=== PATIENT | male | born 1965 | race American Indian/Alaskan Native ===

== ENCOUNTER 2017-10-19 09:41 | Observation (INO) | payer OTHER ==
--- NOTE | 2017-10-19 09:48 | ED PDOC ---
Arrival/HPI - General Time Seen by Provider: 10/19/17 09:45 Historian: Patient - History of Present Illness Narrative History of Present Illness (Text): 10/19/17 09:45 52yo male with PMhx of hypertension, Diabetes, ESRD on dialysis MWF present with complaint of chest and right arm pain since yesterday. States pain started prior starting his dialysis yesterday. States his HR was elevated while getting his dialysis yesterday with the chest pain. He decided to go home thinking chest pain will resolved, but it continued this morning. He reports previous history of similar pain in the past, but it usually resolve within a day. He did not take any medication for the pain. Also reports abdominal pain. Denies nausea, vomiting, diarrhea, constipation, fever, chills, any other complaint. Past Medical History - Provider Review Nursing Documentation Reviewed: Yes Family/Social History - Physician Review Nursing Documentation Reviewed: Yes Family/Social History: Unknown Family HX Allergies/Home Meds Allergies/Adverse Reactions: Allergies No Known Allergies Allergy (Verified 10/19/17 13:36) Home Medications: Home Meds Medication Instructions Recorded Confirmed Brimonidine 0.2% [Alphagan 0.2% 1 drp OU QID 10/19/17 10/19/17 Opht] Cinacalcet [Sensipar] 30 mg PO DAILY 10/19/17 10/19/17 Levothyroxine [Synthroid] 25 mcg PO DAILY 10/19/17 10/19/17 Metoprolol Tartrate [Lopressor] 50 mg PO BID 10/19/17 10/19/17 Minoxidil [Loniten] 10 mg PO BID 10/19/17 10/19/17 Timolol 0.5% Ophth [Timoptic 0.5% 1 drop QID 10/19/17 10/19/17 Ophth Soln] Travoprost [Travatan Z] 1 drop OU QID 10/19/17 10/19/17 Review of Systems - Physician Review All systems were reviewed & negative as marked: Yes - Review of Systems Constitutional: Normal Eyes: Normal ENT: Normal Respiratory: Normal Cardiovascular: Chest Pain. absent: Palpitations, Edema, Calf Pain, RANGEL, Orthopnea Gastrointestinal: Abdominal Pain. absent: Constipation, Diarrhea, Nausea, Vomiting, Hematemesis Genitourinary Male: Normal Musculoskeletal: Normal Skin: Normal Neurological: Normal Endocrine: Normal Hemo/Lymphatic: Normal Psychiatric: Normal Physical Exam Vital Signs Reviewed: Yes Vital Signs Temp Pulse Pulse Resp BP Pulse Ox 10/19/17 09:57 81 10/19/17 09:52 98.1 F 80 21 130/73 97 Temperature: Afebrile Blood Pressure: Normal Pulse: Regular Respiratory Rate: Normal Appearance: Positive for: Well-Appearing, Non-Toxic, Comfortable Pain Distress: None Mental Status: Positive for: Alert and Oriented X 3 - Systems Exam Head: Present: Atraumatic, Normocephalic Pupils: Present: PERRL Extroacular Muscles: Present: EOMI Conjunctiva: Present: Normal Mouth: Present: Moist Mucous Membranes Neck: Present: Normal Range of Motion Respiratory/Chest: Present: Clear to Auscultation, Good Air Exchange. No: Respiratory Distress, Accessory Muscle Use Cardiovascular: Present: Regular Rate and Rhythm, Normal S1, S2. No: Murmurs Abdomen: Present: Normal Bowel Sounds. No: Tenderness, Distention, Peritoneal Signs Back: Present: Normal Inspection Upper Extremity: Present: Normal Inspection, Other (fistular noted to left upper arm). No: Cyanosis, Edema Lower Extremity: Present: Normal Inspection. No: Edema Neurological: Present: GCS=15, CN II-XII Intact, Speech Normal Skin: Present: Warm, Dry, Normal Color. No: Rashes Psychiatric: Present: Alert, Oriented x 3, Normal Insight, Normal Concentration Medical Decision Making ED Course and Treatment: 10/19/17 21:03 Pt in ED for stated history. He was not in any distress in ED. His pain was controlled in ED with medication. Pt remain mildy tachycardic. EKG A fluter with 3:1 AV conduction First CE was negative. D dimer was elevated and V /Q was ordered to r/o PE 10/19/17 21:04 V/Q was negative. Pt was admitted for chest pain Case was HÉCTOR De Leon and he accepted pt for admission - Lab Interpretations Lab Results: 10/19/17 11:25 10/19/17 11:25 Lab Results 10/19/17 11:25: Sodium 146, Potassium 3.8, Chloride 98, Carbon Dioxide 33, Anion Gap 19, BUN 25 H, Creatinine 8.4 H*, Est GFR ( Amer) 8, Est GFR ( Non-Af Amer) 7, Random Glucose 202 H, Calcium 8.6, Magnesium 2.1, Total Bilirubin 0.7, AST 27, ALT 25, Alkaline Phosphatase 117, Lactate Dehydrogenase 516, Total Creatine Kinase 251 H, CK-MB (CK-2) 1.3, CK-MB (CK-2) % Cancelled, Troponin I 0.02, Total Protein 8.4 H, Albumin 4.4, Globulin 4.0, Albumin/ Globulin Ratio 1.1 10/19/17 11:25: PT 14.3 H, INR 1.24 H, APTT 34.6, D-Dimer, Quantitative 312 H 10/19/17 11:25: WBC 5.4, RBC 4.04, Hgb 10.5 L, Hct 34.9 L, MCV 86.4, MCH 26.0, MCHC 30.1 L, RDW 17.3 H, Plt Count 206, MPV 9.2, Gran % 48.9 L, Lymph % (Auto) 38.4 H, Garza % (Auto) 9.9 H, Eos % (Auto) 2.2, Baso % (Auto) 0.6, Gran # 2.63, Lymph # (Auto) 2.1, Garza # (Auto) 0.5, Eos # (Auto) 0.1, Baso # (Auto) 0.03, Neutrophils % (Manual) 56, Lymphocytes % (Manual) 33, Monocytes % (Manual) 8 H, Eosinophils % (Manual) 3, Nucleated RBC % 3 - RAD Interpretation Radiology Orders: 10/19/17 10:41 CHEST PORTABLE [RAD] Stat - Medication Orders Current Medication Orders: Acetaminophen (Tylenol 325mg Tab) 650 mg PO Q4 PRN PRN Reason: Pain, moderate (4-7) Aspirin (Ecotrin) 81 mg PO 0800 AVINASH Cinacalcet (Sensipar) 30 mg PO DAILY AVINASH Last Admin: 10/19/17 17:49 Dose: 30 mg Cyclobenzaprine HCl (Flexeril) 5 mg PO Q8 PRN PRN Reason: Other Famotidine (Pepcid) 40 mg PO HS AVINASH Heparin Sodium (Porcine) (Heparin) 5,000 units SC Q8 AVINASH PRN Reason: Protocol Last Admin: 10/19/17 17:49 Dose: 5,000 units Subcutaneous Administrations Document 10/19/17 17:49 CD (Rec: 10/19/17 17:49 CD [id number]) Injection Site MAR Injection Site Right Arm Charges for Administration # of Subcutaneous Administrations 1 Insulin Human Regular (Humulin R Low) 0 units SC ACHS [facility] PRN Reason: Protocol Latanoprost (Xalatan Opht) 0 ml OU HS AVINASH Levothyroxine Sodium (Synthroid) 25 mcg PO DAILY [facility] Last Admin: 10/19/17 17:49 Dose: 25 mcg Metoprolol Tartrate (Lopressor) 50 mg PO BID [facility] Last Admin: 10/19/17 17:54 Dose: 50 mg MAR Pulse and Blood Pressure Document 10/19/17 17:54 CD (Rec: 10/19/17 17:54 CD [id number]) Pulse Pulse Rate (60-90) 75 Blood Pressure Blood Pressure (100/60-150/90) 149/92 Minoxidil (Minoxidil) 10 mg PO BID [facility] Non-Formulary Medication (Brimonidine 0.2% [Alphagan 0.2% Opht]) 1 drp OU Q8 [facility] Last Admin: 10/19/17 18:02 Dose: Pantoprazole Sodium (Protonix Ec Tab) 40 mg PO BID [facility] Timolol Maleate (Timoptic 0.5% Oph Soln) 1 drop OU BID [facility] Last Admin: 10/19/17 17:49 Dose: 1 drop Discontinued Medications Aspirin (Aspirin) 325 mg PO STAT STA Stop: 10/19/17 10:42 Last Admin: 10/19/17 11:35 Dose: 325 mg Morphine Sulfate (Morphine) 4 mg IVP STAT STA Stop: 10/19/17 11:36 Last Admin: 10/19/17 11:45 Dose: 4 mg MAR Pain Assessment Document 10/19/17 11:45 OCS (Rec: 10/19/17 11:45 OCS [id number]) Pain Reassessment Is this a pain reassessment? Yes Sleep Is patient sleeping during reassessment? No Presence of Pain Presence of Pain Yes Pain Scale Used Pain Scale Used Numeric Location Pain Location Body Site Abdomen Description Description Constant Intensity of Pain at present 8 Pain Behavior Irritability Rubbing Site Facial Grimacing Aggravating Factors ADL's IVP Administration Document 10/19/17 11:45 OCS (Rec: 10/19/17 11:45 OCS [id number]) Charges for Administration # of IVP Administrations 1 Pantoprazole Sodium (Protonix Ec Tab) 40 mg PO 0600 AVINASH Pneumococcal Polyvalent Vaccine (Pneumovax 23 Vaccine) 0.5 ml IM .ONCE ONE Stop: 10/19/17 16:13 Disposition/Present on Arrival - Present on Arrival Any Indicators Present on Arrival: No History of DVT/PE: No History of Uncontrolled Diabetes: No Urinary Catheter: No History of Decub. Ulcer: No History Surgical Site Infection Following: None - Disposition Have Diagnosis and Disposition been Completed?: Yes Diagnosis: Chest pain, ESRD (end stage renal disease) Disposition: HOSPITALIZED Disposition Time: 12:40 Patient Plan: Admission Patient Problems: Current Active Problems Problem Status Onset Chest pain Acute Condition: FAIR
[2017-10-19 09:52] VITALS: BMI 26.6
[2017-10-19 11:35] LABS: BASO # 0.03 K/mm3 (0.0-2.0); BASO % 0.6 % (0.0-3.0); EOS # 0.1 (0.0-0.7); EOS % 2.2 % (1.5-5.0); GRAN # 2.63 (1.4-6.5); GRAN % 48.9 % (50.0-68.0); HEMOGLOBIN 10.5 g/dL (14.0-18.0); LYMPH # 2.1 (1.2-3.4); LYMPH % 38.4 % (22.0-35.0); MEAN CELL VOLUME 86.4 fl (80.0-105.0); MEAN CORPUSCULAR HGB CONC 30.1 g/dl (31.0-37.0); MEAN PLATELET VOLUME 9.2 fl (7.0-11.0); MONO # 0.5 (0.1-0.6); MONO % 9.9 % (1.0-6.0); PLATELET COUNT 206 10^3/uL (120.0-450.0); RBC 4.04 10^6/uL (3.5-6.1); RED CELL DISTRIBUTION WIDTH 17.3 % (11.5-14.5); WHITE BLOOD COUNT 5.4 10^3/ul (4.5-11.0)
[2017-10-19] MEDS ORDERED: Morphine 4 mg/ml ISec IVP STA (11:35)
[2017-10-19 11:51] LABS: INR 1.24 (0.93-1.08); PARTIAL THROMBOPLASTIN TIME 34.6 Seconds (25.1-36.5); PROTHROMBIN TIME 14.3 SECONDS (9.4-12.5)
[2017-10-19 11:55] LABS: TROPONIN I 0.02 ng/mL
--- NOTE | 2017-10-19 12:04 | RAD ---
HISTORY: chest pain COMPARISON: No prior. FINDINGS: LUNGS: No active pulmonary disease. PLEURA: No significant pleural effusion identified, no pneumothorax apparent. CARDIOVASCULAR: Portable technique limits evaluation of the cardiac silhouette which appears somewhat prominent. No pulmonary vascular derangement grossly evident. OSSEOUS STRUCTURES: No significant abnormalities. VISUALIZED UPPER ABDOMEN: Normal. OTHER FINDINGS: Incidental multiple wall stents are identified of bilateral subclavian and axillary regions as well as right upper extremity proximally. IMPRESSION: Potential cardiomegaly without pulmonary vascular derangement, however, frontal technique made magnify the cardiac silhouette and stent. No acute infiltrate or pleural effusion identified bilaterally.
[2017-10-19 12:23] LABS: ALB/GLOB RATIO 1.1 (1.1-1.8); ALBUMIN 4.4 g/dL (3.0-4.8); CALCIUM 8.6 mg/dL (8.4-10.5); MAGNESIUM 2.1 mg/dL (1.7-2.2)
[2017-10-19 12:47] LABS: EOSINOPHIL 3 % (0.0-3.0); LYMPHOCYTE 33 % (22.0-35.0); MONOCYTE 8 % (1.0-6.0); NEUTROPHIL 56 % (50.0-70.0); NUCLEATED RED BLOOD CELL 3 %
[2017-10-19 12:53] LABS: CK-MB 1.3 ng/mL (0.0-3.6)
--- NOTE | 2017-10-19 13:18 | CP.PCM.HP ---
History of Present Illness - History of Present Illness History of Present Illness: Chief complaint: Neck pain, dyspnea, and abdominal pain HPI: Patient is a 52 year old male with a past medical history significant for hypertension, diabetes mellitus, hypothyroidism, and end stage renal disease with dialysis MWF. Patient states on Wednesday when he was visiting his mother at [facility] [place], he noticed he was experiencing neck pain which radiated to his right arm. Patient states he ignored the pain and continued with his day. Patient described the pain as dull, rating it a 6/10, with no relieving factors. The next morning he still had the pain however stated when he was having dialysis, the pain increased to a 10/10. Admits that he was advised to go to the hospital by his office cashier however decided to go home and see if the pain would eventually resolve on its own. Patient states he woke up the next morning with the same pain and decided to go to the emergency department. To note patient states he has had this pain in the past but it has now increased in frequency and duration. Before pain would wax and wane, and was relieved with aspirin. Patient also endorses dyspnea without exertion, stating that he has also experienced this in the past however noticed that this month there has been a significant increase in instances where he finds himself short of breath. Admits to sleeping with only one pillow at night, stating that positioning does not affect his breathing at night. Patient also endorses diffuse abdominal pain which has been constant for the past two weeks. Describes the abdominal pain as constant and dull, rating it a 5/10. Patient states his abdominal pain is chronic and he usually can relieve it by taking antacids however this time he has found no relief with medication. Admits to constipation stating his last bowel movement was two days prior. Patient denies nausea, vomiting, diarrhea, fevers, chills. PMD: Dr. Rell [facility] Staff Pharmacist: Dr. Miller Medications: reviewed Allergies: NKDA Family history: Diabetes Mellitus Social history: denies tobacco, alcohol, illicit drug use Surgical history: AV fistula right arm Present on Admission - Present on Admission Any Indicators Present on Admission: No Review of Systems - Constitutional Constitutional: absent: Chills, Fever, Headache, Weakness - EENT Eyes: absent: Blurred Vision, Change in Vision Ears: absent: Ear Discharge, Tinnitus Nose/Mouth/Throat: absent: Nasal Congestion, Nasal Discharge - Cardiovascular Cardiovascular: Chest Pain at Rest (atypical chest pain), Dyspnea, Pain Radiating to Arm/Neck/Jaw (pain radiating to right arm), Pedal Edema. absent: Syncope - Respiratory Respiratory: Dyspnea, Pain with Coughing. absent: Cough, Hemoptysis, Chest Congestion - Gastrointestinal Gastrointestinal: Abdominal Pain (diffuse). absent: Diarrhea, Nausea, Vomiting - Genitourinary Genitourinary: absent: Dysuria, Flank Pain - Neurological Neurological: absent: Dizziness, Headaches, Weakness - Psychiatric Psychiatric: absent: Anxiety - Endocrine Endocrine: absent: Fatigue, Flushing - Hematologic/Lymphatic Hematologic: absent: Easy Bleeding, Easy Bruising Past Patient History - Past Social History Smoking Status: Never Smoked - CARDIAC Hx Cardiac Disorders: No - PULMONARY Hx Respiratory Disorders: No - NEUROLOGICAL Hx Neurological Disorder: No - HEENT Hx HEENT Problems: No - RENAL Hx Chronic Kidney Disease: Yes Hx Dialysis: Yes (MWF) - ENDOCRINE/METABOLIC Hx Endocrine Disorders: Yes Hx Diabetes Mellitus Type 2: Yes - HEMATOLOGICAL/ONCOLOGICAL Hx Blood Disorders: No - INTEGUMENTARY Hx Dermatological Problems: No - MUSCULOSKELETAL/RHEUMATOLOGICAL Hx Musculoskeletal Disorders: No - GASTROINTESTINAL Hx Gastrointestinal Disorders: No - GENITOURINARY/GYNECOLOGICAL Hx Genitourinary Disorders: No - PSYCHIATRIC Hx Psychophysiologic Disorder: No Hx Substance Use: No - SURGICAL HISTORY Hx Surgeries: No Meds Allergies/Adverse Reactions: Allergies Allergy/AdvReac Type Severity Reaction Status Date / Time No Known Allergies Allergy Verified 10/19/17 13:36 Physical Exam - Constitutional Appears: Non-toxic, No Acute Distress - Head Exam Head Exam: ATRAUMATIC, NORMAL INSPECTION, NORMOCEPHALIC - Eye Exam Eye Exam: EOMI, Normal appearance - ENT Exam ENT Exam: Mucous Membranes Moist - Neck Exam Neck exam: Positive for: Normal Inspection - Respiratory Exam Respiratory Exam: Chest Wall Tenderness (reproducible bilateral clavicular tenderness ), Clear to Auscultation Bilateral, NORMAL BREATHING PATTERN. absent : Rhonchi, Wheezes - Cardiovascular Exam Cardiovascular Exam: Irregular Rhythm. absent: Tachycardia, Clicks, Gallop - GI/Abdominal Exam GI & Abdominal Exam: Normal Bowel Sounds, Soft - Rectal Exam Rectal Exam: NORMAL INSPECTION - Extremities Exam Extremities exam: Positive for: pedal edema (right ankle), pedal pulses present. Negative for: calf tenderness - Back Exam Back exam: NORMAL INSPECTION - Neurological Exam Neurological exam: Alert, CN II-XII Intact, Oriented x3 - Psychiatric Exam Psychiatric exam: Normal Affect, Normal Mood - Skin Skin Exam: Intact, Normal Color, Warm Results - Vital Signs Recent Vital Signs: Last Vital Signs Temp 98.1 F 10/19/17 09:52 Pulse 81 10/19/17 09:57 Resp 21 10/19/17 09:52 BP 130/73 10/19/17 09:52 Pulse Ox 97 10/19/17 09:52 - Labs Result Diagrams: 10/19/17 11:25 10/19/17 11:25 Assessment & Plan - Assessment and Plan (Free Text) Assessment: 52 year old male with a past medical history of DM, hypertension, hypothyroidism , and ESRD (MWF) dialysis. Plan: Atypical Chest pain rule out ACS -Continue to trend troponins. First set 0.02. -EKG series; continue to monitor for changes -Cardiology consulted -Continue daily Aspirin -Lipid panel ordered for morning -HgA1C ordered; results pending -TSH ordered; results p ending Abnormal EKG -Atrial flutter and RBBB -Will monitor and follow up with EKG series Neck pain due to radiculopathy vs musculoskeletal -Reproducible in nature -Sternocleidomastoid point tenderness; will continue to monitor -Continue with OMM myofascial release as needed Abdominal pain secondary to constipation vs. gastroparesis -Possibly due to constipation, will order abdominal flat plate for further evaluation before ordering colace -HgA1C pending Dyspnea rule out CHF exacerbation vs fluid overload secondary to ESRD -CXR shows signs of cardiomegaly -BNP ordered -NC 2L -Nephrology consulted -Will resume dialysis on MWF schedule Diabetes Mellitus -HgA1C ordered -ISS-low Hypertension -Will restart home BP medications -continue to monitor BP; as of now is stable Hypothyroidism -Will restart home synthroid -TSH ordered End stage renal disease -Nephrology consulted -Will resume dialysis MWF schedule -continue cinacalcet DVT/GI prophylaxis: Heparin+SCDs/Protonix
--- NOTE | 2017-10-19 15:19 | NM ---
COMPARISON: 10/19/2017 single-view chest TECHNIQUE: 30.0 mCi technetium 99-m DTPA aerosol. 3.7 mCI technetium 99-m MAA administered intravenously. FINDINGS: VENTILATION COMPONENT: Normal. PERFUSION COMPONENT: Normal. IMPRESSION: Negative ventilation perfusion scan for pulmonary embolism.
--- NOTE | 2017-10-19 15:47 | RAD ---
HISTORY: constipation, abdominal pain COMPARISON: No prior. FINDINGS: BOWEL: Normal. No obstruction. No free air. Mild constipation BONES: Normal. OTHER FINDINGS: None. IMPRESSION: Mild constipation
[2017-10-19] MEDS ORDERED: Pneumococcal 23-Valent Vaccine IM ONE (16:12)
[2017-10-19] MEDS ORDERED: Influenza Vaccine 60 mcg/0.5 mL SYR (4YR UP) IM ONE (16:12)
[2017-10-19] MEDS: Levothyroxine 25 MCG TAB PO SCH (17:49)
[2017-10-19] MEDS: BRIMONIDINE 0.2% OU SCH (18:02)
[2017-10-19 19:33] LABS: MAGNESIUM 2.1 mg/dL (1.7-2.2)
[2017-10-19 19:49] LABS: TROPONIN I 0.02 ng/mL
[2017-10-19] MEDS: Latanoprost 2.5 ml Opht Soln OU SCH (21:18)
[2017-10-20] MEDS ORDERED: Pantoprazole 40 mg EC Tab PO SCH (06:00)
[2017-10-20 06:32] LABS: BASO # 0.03 K/mm3 (0.0-2.0); BASO % 0.6 % (0.0-3.0); EOS # 0.1 (0.0-0.7); EOS % 2.4 % (1.5-5.0); GRAN # 2.42 (1.4-6.5); GRAN % 45.6 % (50.0-68.0); HEMOGLOBIN 9.9 g/dL (14.0-18.0); LYMPH # 2.3 (1.2-3.4); LYMPH % 42.9 % (22.0-35.0); MEAN CELL VOLUME 86.1 fl (80.0-105.0); MEAN CORPUSCULAR HEMOGLOBIN 25.4 pg (25.0-35.0); MEAN CORPUSCULAR HGB CONC 29.6 g/dl (31.0-37.0); MEAN PLATELET VOLUME 9.4 fl (7.0-11.0); MONO # 0.5 (0.1-0.6); MONO % 8.5 % (1.0-6.0); RBC 3.89 10^6/uL (3.5-6.1); RED CELL DISTRIBUTION WIDTH 17.4 % (11.5-14.5); WHITE BLOOD COUNT 5.3 10^3/ul (4.5-11.0)
[2017-10-20 07:10] LABS: ALB/GLOB RATIO 1.1 (1.1-1.8); ALBUMIN 4.2 g/dL (3.0-4.8); CALCIUM 8.7 mg/dL (8.4-10.5)
[2017-10-20] MEDS: Insulin Reg-LOW-Coverage SC SCH ×4 (07:30→21:50)
[2017-10-20 07:44] LABS: IRON 36 ug/dL (45-180)
[2017-10-20 07:53] LABS: % IRON SATURATION 16 % (20-55); TOTAL IRON BINDING CAPACITY 223 ug/dL (261-462)
--- NOTE | 2017-10-20 08:26 | CARD ---
APPROVED REPORT EKG Measurement Heart [id number] <Conclusion> Normal sinus rhythm Right bundle branch block Abnormal ECG
--- NOTE | 2017-10-20 08:50 | CARD ---
APPROVED REPORT EKG Measurement Heart [id number] [id number] <Conclusion> RSR Right bundle branch block Abnormal ECG
[2017-10-20] MEDS: BRIMONIDINE 0.2% OU SCH ×3 (11:01→21:50)
--- NOTE | 2017-10-20 11:30 | CARD ---
APPROVED REPORT EXAM: Two-dimensional and M-mode echocardiogram with Doppler and color Doppler. INDICATION Chest Pain 2D DIMENSIONS Left Atrium (2D)3.4 (1.6-4.0cm)IVSd1.7 (0.7-1.1cm) LVDd4.5 (3.9-5.9cm)PWd1.6 (0.7-1.1cm) LVDs2.9 (2.5-4.0cm)FS (%) 36.1 % LVEF (%)65.9 (>50%) M-Mode DIMENSIONS Aortic Root2.70 (2.2-3.7cm)Aortic Cusp Exc.1.50 (1.5-2.0cm) Aortic Valve AoV Peak Ujnyumxm629.0cm/Marley Peak GR.17mmHg Mitral Valve MV E Upoorajk845.0cm/sMV A Yqqedjdu341.0cm/sE/A ratio1.3 TDI E/Lateral E'0.0E/Medial E'0.0 Tricuspid Valve TR Peak [id number]/sRAP [id number] Peak Gr.44mmHg [id number] LEFT VENTRICLE The left ventricle is normal size. There is moderate concentric left ventricular hypertrophy. The left ventricular function is normal. The left ventricular ejection fraction is within the normal range. There is normal LV segmental wall motion. Transmitral Doppler flow pattern is Grade II-pseudonormal filling dynamics. RIGHT VENTRICLE The right ventricle is normal size. There is normal right ventricular wall thickness. The right ventricular systolic function is normal. ATRIA The left atrium size is normal. The right atrium size is normal. AORTIC VALVE The aortic valve is mildly thickened. No aortic regurgitation is present. There is no aortic valvular stenosis. MITRAL VALVE The mitral valve is mildly thickened. There is no mitral valve regurgitation noted. There is no mitral valve stenosis. TRICUSPID VALVE There is moderate tricuspid regurgitation. There is moderate pulmonary hypertension. GREAT VESSELS The aortic root is normal in size. The IVC is normal in size and collapses >50% with inspiration. PERICARDIAL EFFUSION There is no pericardial effusion. <Conclusion> The left ventricle is normal size. There is moderate concentric left ventricular hypertrophy. The left ventricular function is normal. The left ventricular ejection fraction is within the normal range. There is normal LV segmental wall motion. There is moderate tricuspid regurgitation. There is moderate pulmonary hypertension.
[2017-10-20 12:56] LABS: FOLATE 6.4 ng/mL
--- NOTE | 2017-10-20 14:27 | CP.PCM.PN ---
Addendum entered and electronically signed by Lizette Wiley DO 10/20/17 15:18 : Questionable A-flutter - Per cardio, this is not A-flutter. Pt is in sinus rhythm Anemia of chronic dz likely due to ESRD for ineffective vit D activation, and low erythopoietin - ferritin high with Fe deficiency - Hb stable at 10 - asymtpmatic Neck pain and R upper arm pain - flexiril HS and PRN during the day - pending___ neck and R shoulder x-ray to r/o unstable structures - Pending____u/s R upper arm to r/o DVT Discharge plan - Pending PT eval - likely discharge home tomorrow with prescription of outpatient occupational and physical therapy s/r/d/w Dr. Rueda Original Note: <Deepak Varela - Last Filed: 10/20/17 14:46> Subjective - Date & Time of Evaluation Date of Evaluation: 10/20/17 Time of Evaluation: 06:30 - Subjective Subjective: Patient seen and examined at bedside. Noted to have a cough. Patient states his neck pain is still present and has only improved slightly. Denies fevers, chills , headache, chest pain. Objective - Vital Signs/Intake and Output Vital Signs (last 24 hours): Temp Pulse Resp BP Pulse Ox 98.7 F 80 18 127/78 98 10/20/17 05:17 10/20/17 10:00 10/20/17 05:17 10/20/17 05:17 10/20/17 05:17 Intake and Output: 10/20/17 10/20/17 06:59 18:59 Intake Total 120 Output Total 0 Balance 120 - Medications Medications: Current Medications Acetaminophen (Tylenol 325mg Tab) 650 mg PO Q4 PRN PRN Reason: Pain, moderate (4-7) Aspirin (Ecotrin) 81 mg PO 0800 [facility] Last Admin: 10/20/17 08:02 Dose: 81 mg Cinacalcet (Sensipar) 30 mg PO DAILY [facility] Last Admin: 10/19/17 17:49 Dose: 30 mg Cyclobenzaprine HCl (Flexeril) 5 mg PO Q8 PRN PRN Reason: Other Docusate Sodium (Colace) 100 mg PO DAILY [facility]CLUDES [facility] Famotidine (Pepcid) 40 mg PO HS [facility]CLUD[facility] Last Admin: 10/19/17 21:18 Dose: 40 mg Heparin Sodium (Porcine) (Heparin) 5,000 units SC Q8 [facility] PRN Reason: Protocol Last Admin: 10/20/17 05:02 Dose: 5,000 units Insulin Human Regular (Humulin R Low) 0 units SC ACHS COUNT INCLUDES [facility] PRN Reason: Protocol Last Admin: 10/20/17 07:30 Dose: Not Given Latanoprost (Xalatan Opht) 0 ml OU HS [facility]CLUD[facility] Last Admin: 10/19/17 21:18 Dose: 2.5 ml Levothyroxine Sodium (Synthroid) 25 mcg PO DAILY [facility] Last Admin: 10/19/17 17:49 Dose: 25 mcg Metoprolol Tartrate (Lopressor) 50 mg PO BID [facility] Last Admin: 10/19/17 17:54 Dose: 50 mg Minoxidil (Minoxidil) 10 mg PO BID COUNT [facility]CLUDES [facility] Non-Formulary Medication (Brimonidine 0.2% [Alphagan 0.2% Opht]) 1 drp OU Q8 [facility]CLUDES [facility] Last Admin: 10/20/17 11:01 Dose: Not Given Pantoprazole Sodium (Protonix Ec Tab) 40 mg PO BID COUNT [facility]CLUDES [facility] Timolol Maleate (Timoptic 0.5% Ophth Soln) 1 drop OU BID [facility] Last Admin: 10/19/17 17:49 Dose: 1 drop - Labs Labs: 10/20/17 05:15 10/20/17 05:15 PT 14.3 SECONDS (9.4-12.5) H 10/19/17 11:25 INR 1.24 (0.93-1.08) H 10/19/17 11:25 APTT 34.8 Seconds (25.1-36.5) 10/20/17 05:15 - Constitutional Appears: Non-toxic, No Acute Distress - Head Exam Head Exam: ATRAUMATIC, NORMAL INSPECTION, NORMOCEPHALIC - Eye Exam Eye Exam: EOMI, Normal appearance - ENT Exam ENT Exam: Mucous Membranes Moist - Neck Exam Neck Exam: Full ROM, Normal Inspection - Respiratory Exam Respiratory Exam: Clear to Ausculation Bilateral, NORMAL BREATHING PATTERN. absent: Rhonchi, Wheezes - Cardiovascular Exam Cardiovascular Exam: REGULAR RHYTHM, +S1, +S2 - GI/Abdominal Exam GI & Abdominal Exam: Soft, Tenderness (diffuse), Normal Bowel Sounds - Extremities Exam Extremities Exam: Normal Inspection - Back Exam Back Exam: NORMAL INSPECTION - Neurological Exam Neurological Exam: Alert, Awake, Oriented x3 - Psychiatric Exam Psychiatric exam: Normal Affect, Normal Mood - Skin Skin Exam: Intact, Normal Color, Warm Assessment and Plan - Assessment and Plan (Free Text) Assessment: 52 year old male with a past medical history of DM, hypertension, hypothyroidism , and ESRD (MWF) dialysis. Plan: Atypical Chest pain rule out ACS -Troponin series negative -EKG series; continue to monitor for changes -Cardiology consulted; states patient's echocardiogram is normal. Will rule out DVT/PE with symptoms. Patient will have CTA done tomorrow which will be followed by dialysis on Wednesday. -Continue daily Aspirin -Lipid panel no abnormalities found -HgA1C 5.3 -TSH within normal limits Neck and arm pain due to radiculopathy vs musculoskeletal -Reproducible in nature -Sternocleidomastoid point tenderness; will continue to monitor -Continue with OMM myofascial release as needed -Cervical spine x-ray ordered -Right upper extremity venous doppler ordered; will follow up Abdominal pain secondary to constipation -Possibly due to constipation, ordered colace and miralax -Will continue to monitor Dyspnea rule out CHF exacerbation vs fluid overload secondary to ESRD -CXR shows signs of cardiomegaly -BNP elevated, patient needs to continue with dialysis -NC 2L -Nephrology consulted; MWF dialysis schedule resumed Diabetes Mellitus -HgA1C 5.3 -ISS-low Hypertension -continue home BP medications -continue to monitor BP; as of now is stable Hypothyroidism -continue synthroid -TSH within normal limits End stage renal disease -Nephrology consulted -Will resume dialysis MWF schedule -continue cinacalcet DVT/GI prophylaxis: Heparin+SCDs/Protonix <Robles Rueda B - Last Filed: 10/20/17 17:05> Objective - Vital Signs/Intake and Output Vital Signs (last 24 hours): Temp Pulse Resp BP Pulse Ox 98.7 F 88 18 160/90 H 98 10/20/17 05:17 10/20/17 15:15 10/20/17 05:17 10/20/17 15:15 10/20/17 05:17 Intake and Output: 10/20/17 10/20/17 06:59 18:59 Intake Total 120 120 Output Total 0 300 Balance 120 -180 - Medications Medications: Current Medications Acetaminophen (Tylenol 325mg Tab) 650 mg PO Q4 PRN PRN Reason: Pain, moderate (4-7) Aspirin (Ecotrin) 81 mg PO 0800 [facility] Last Admin: 10/20/17 08:02 Dose: 81 mg Cinacalcet (Sensipar) 30 mg PO DAILY COUNT [facility]CLUDES [facility] Last Admin: 10/20/17 15:16 Dose: 30 mg Cyclobenzaprine HCl (Flexeril) 5 mg PO HS COUNT [facility]CLUDES [facility] Cyclobenzaprine HCl (Flexeril) 5 mg PO Q12 PRN PRN Reason: Other Docusate Sodium (Colace) 100 mg PO TID COUNT INCLUDES [facility] Famotidine (Pepcid) 40 mg PO HS COUNT [facility]CLUDES [facility] Last Admin: 10/19/17 21:18 Dose: 40 mg Heparin Sodium (Porcine) (Heparin) 5,000 units SC Q8 [facility] PRN Reason: Protocol Last Admin: 10/20/17 15:23 Dose: 5,000 units Hydralazine HCl (Apresoline) 10 mg IVP Q6 PRN PRN Reason: Systolic Blood Pressure Insulin Human Regular (Humulin R Low) 0 units SC ACHS COUNT INCLUDES [facility] PRN Reason: Protocol Last Admin: 10/20/17 15:18 Dose: Not Given Latanoprost (Xalatan Opht) 0 ml OU HS COUNT [facility]CLUDES [facility] Last Admin: 10/19/17 21:18 Dose: 2.5 ml Levothyroxine Sodium (Synthroid) 25 mcg PO DAILY COUNT [facility]CLUDES [facility] Last Admin: 10/20/17 15:17 Dose: 25 mcg Metoprolol Tartrate (Lopressor) 50 mg PO BID COUNT [facility]CLUD[facility] Last Admin: 10/20/17 15:15 Dose: 50 mg Minoxidil (Minoxidil) 10 mg PO BID COUNT [facility]CLUDES [facility] Last Admin: 10/20/17 15:16 Dose: 10 mg Non-Formulary Medication (Brimonidine 0.2% [Alphagan 0.2% Opht]) 1 drp OU Q8 COUNT [facility]CLUD[facility] Last Admin: 10/20/17 15:19 Dose: Not Given Pantoprazole Sodium (Protonix Ec Tab) 40 mg PO BID COUNT [facility]CLUD[facility] Last Admin: 10/20/17 15:17 Dose: 40 mg Polyethylene Glycol (Miralax) 17 gm PO BID [facility] Timolol Maleate (Timoptic 0.5% Ophth Soln) 1 drop OU BID [facility] Last Admin: 10/20/17 10:00 Dose: Not Given - Labs Labs: 10/20/17 05:15 10/20/17 05:15 PT 14.3 SECONDS (9.4-12.5) H 10/19/17 11:25 INR 1.24 (0.93-1.08) H 10/19/17 11:25 APTT 34.8 Seconds (25.1-36.5) 10/20/17 05:15 Attending/Attestation - Attestation I have personally seen and examined this patient.: Yes I have fully participated in the care of the patient.: Yes I have reviewed all pertinent clinical information, including history, physical exam and plan: Yes Notes (Text): 52 year old male with a past medical history of DM, hypertension, hypothyroidism , and ESRD (MWF) dialysis who came for evaluation of neck pain. ACS ruled out. Echo revealed LVEF , Moderate TR and moderate pulmonary hypertension. Patient is in NSR. CT angio ordered by mink farmer. Neck pain is most likely related to musculoskeletal etiology. Cervical spine Xray pending. Neck CT pending. UE duplex pending. Abdominal pain is most likely due to constipation. Will continue miralax and colace. A1c is 5.3. Continue synthroid. Upon discharge patient will follow up with Dr Rell Oates. Dr Robles Rueda
[2017-10-20] MEDS: Pantoprazole 40 mg EC Tab PO SCH ×2 (15:17→17:53)
[2017-10-20] MEDS: Levothyroxine 25 MCG TAB PO SCH (15:17)
[2017-10-20] MEDS: POLYETHYLENE GLYCOL 3350 17 GM/Dose PACKET PO SCH (17:53)
--- NOTE | 2017-10-20 19:35 | CP.PCM.CON ---
Past Patient History - Past Social History Smoking Status: Never Smoked - CARDIAC Hx Cardiac Disorders: No - PULMONARY Hx Respiratory Disorders: No - NEUROLOGICAL Hx Neurological Disorder: No - HEENT Hx HEENT Problems: No - RENAL Hx Chronic Kidney Disease: Yes Hx Dialysis: Yes (MWF) - ENDOCRINE/METABOLIC Hx Endocrine Disorders: Yes Hx Diabetes Mellitus Type 2: Yes - HEMATOLOGICAL/ONCOLOGICAL Hx Blood Disorders: No - INTEGUMENTARY Hx Dermatological Problems: No - MUSCULOSKELETAL/RHEUMATOLOGICAL Hx Musculoskeletal Disorders: No - GASTROINTESTINAL Hx Gastrointestinal Disorders: No - GENITOURINARY/GYNECOLOGICAL Hx Genitourinary Disorders: No - PSYCHIATRIC Hx Psychophysiologic Disorder: No Hx Substance Use: No - SURGICAL HISTORY Hx Surgeries: No Meds Allergies/Adverse Reactions: Allergies Allergy/AdvReac Type Severity Reaction Status Date / Time No Known Allergies Allergy Verified 10/19/17 13:36 - Medications Medications: Current Medications Acetaminophen (Tylenol 325mg Tab) 650 mg PO Q4 PRN PRN Reason: Pain, moderate (4-7) Aspirin (Ecotrin) 81 mg PO 0800 [facility] Last Admin: 10/20/17 08:02 Dose: 81 mg Cinacalcet (Sensipar) 30 mg PO DAILY [facility] Last Admin: 10/20/17 15:16 Dose: 30 mg Cyclobenzaprine HCl (Flexeril) 5 mg PO HS [facility] Cyclobenzaprine HCl (Flexeril) 5 mg PO Q12 PRN PRN Reason: Other Docusate Sodium (Colace) 100 mg PO TID [facility] Last Admin: 10/20/17 17:49 Dose: 100 mg Famotidine (Pepcid) 40 mg PO HS [facility] Last Admin: 10/19/17 21:18 Dose: 40 mg Heparin Sodium (Porcine) (Heparin) 5,000 units SC Q8 [facility] PRN Reason: Protocol Last Admin: 10/20/17 15:23 Dose: 5,000 units Hydralazine HCl (Apresoline) 10 mg IVP Q6 PRN PRN Reason: Systolic Blood Pressure Insulin Human Regular (Humulin R Low) 0 units SC ACHS [facility] PRN Reason: Protocol Last Admin: 10/20/17 17:42 Dose: Not Given Latanoprost (Xalatan Opht) 0 ml OU HS [facility] Last Admin: 10/19/17 21:18 Dose: 2.5 ml Levothyroxine Sodium (Synthroid) 25 mcg PO DAILY [facility] Last Admin: 10/20/17 15:17 Dose: 25 mcg Metoprolol Tartrate (Lopressor) 50 mg PO BID [facility] Last Admin: 10/20/17 15:15 Dose: 50 mg Minoxidil (Minoxidil) 10 mg PO BID [facility] Last Admin: 10/20/17 15:16 Dose: 10 mg Non-Formulary Medication (Brimonidine 0.2% [Alphagan 0.2% Opht]) 1 drp OU Q8 [facility] Last Admin: 10/20/17 15:19 Dose: Not Given Pantoprazole Sodium (Protonix Ec Tab) 40 mg PO BID [facility] Last Admin: 10/20/17 17:53 Dose: 40 mg Polyethylene Glycol (Miralax) 17 gm PO BID [facility] Last Admin: 10/20/17 17:53 Dose: 17 gm Timolol Maleate (Timoptic 0.5% Oph Soln) 1 drop OU BID [facility] Last Admin: 10/20/17 17:53 Dose: 1 drop Results - Vital Signs Recent Vital Signs: Last Vital Signs Temp 98.7 F 10/20/17 05:17 Pulse 108 H 10/20/17 18:00 Resp 18 10/20/17 05:17 BP 160/90 H 10/20/17 15:15 Pulse Ox 98 10/20/17 05:17 - Labs Result Diagrams: 10/20/17 05:15 10/20/17 05:15 Labs: Laboratory Results - last 24 hr 10/19/17 10/19/17 10/19/17 19:04 19:04 19:04 WBC RBC Hgb Hct MCV MCH MCHC RDW Plt Count MPV Gran % Lymph % (Auto) Hart % (Auto) Eos % (Auto) Baso % (Auto) Gran # Lymph # (Auto) Hart # (Auto) Eos # (Auto) Baso # (Auto) APTT Sodium Potassium Chloride Carbon Dioxide Anion Gap BUN Creatinine Est GFR ( Amer) Est GFR (Non-Af Amer) POC Glucose (mg/dL) Random Glucose Hemoglobin A1c 5.3 Calcium Iron TIBC % Saturation Ferritin Total Bilirubin AST ALT Alkaline Phosphatase Troponin I 0.02 NT-Pro-B Natriuret Pep 21077 H Total Protein Albumin Globulin Albumin/Globulin Ratio Triglycerides Cholesterol LDL Cholesterol Direct HDL Cholesterol Vitamin B12 Folate TSH 3rd Generation 3.48 10/19/17 10/19/1710/20/18 21:44 23:20 05:15 WBC RBC Hgb Hct MCV MCH MCHC RDW Plt Count MPV Gran % Lymph % (Auto) Hart % (Auto) Eos % (Auto) Baso % (Auto) Gran # Lymph # (Auto) Hart # (Auto) Eos # (Auto) Baso # (Auto) APTT Sodium 146 Potassium 4.2 Chloride 98 Carbon Dioxide 35 H Anion Gap 18 BUN 34 H Creatinine 10.1 H* D Est GFR ( Amer) 7 Est GFR (Non-Af Amer) 5 POC Glucose (mg/dL) 149 H Random Glucose 118 H Hemoglobin A1c Calcium 8.7 Iron TIBC % Saturation Ferritin Total Bilirubin 0.8 AST 39 ALT 19 Alkaline Phosphatase 95 Troponin I 0.02 NT-Pro-B Natriuret Pep Total Protein 8.0 Albumin 4.2 Globulin 3.8 Albumin/Globulin Ratio 1.1 Triglycerides 64 Cholesterol 126 L LDL Cholesterol Direct 51 HDL Cholesterol 40 Vitamin B12 Folate TSH 3rd Generation 10/20/17 10/20/17 10/20/17 05:15 05:15 06:30 WBC 5.3 RBC 3.89 Hgb 9.9 L Hct 33.5 L MCV 86.1 MCH 25.4 MCHC 29.6 L RDW 17.4 H Plt Count 189 MPV 9.4 Gran % 45.6 L Lymph % (Auto) 42.9 H Hart % (Auto) 8.5 H Eos % (Auto) 2.4 Baso % (Auto) 0.6 Gran # 2.42 Lymph # (Auto) 2.3 Hart # (Auto) 0.5 Eos # (Auto) 0.1 Baso # (Auto) 0.03 APTT 34.8 Sodium Potassium Chloride Carbon Dioxide Anion Gap BUN Creatinine Est GFR ( Amer) Est GFR (Non-Af Amer) POC Glucose (mg/dL) Random Glucose Hemoglobin A1c Calcium Iron 36 L TIBC 223 L % Saturation 16 L Ferritin Total Bilirubin AST ALT Alkaline Phosphatase Troponin I NT-Pro-B Natriuret Pep Total Protein Albumin Globulin Albumin/Globulin Ratio Triglycerides Cholesterol LDL Cholesterol Direct HDL Cholesterol Vitamin B12 Folate TSH 3rd Generation 10/20/17 10/20/17 10/20/17 06:30 07:13 16:16 WBC RBC Hgb Hct MCV MCH MCHC RDW Plt Count MPV Gran % Lymph % (Auto) Hart % (Auto) Eos % (Auto) Baso % (Auto) Gran # Lymph # (Auto) Hart # (Auto) Eos # (Auto) Baso # (Auto) APTT Sodium Potassium Chloride Carbon Dioxide Anion Gap BUN Creatinine Est GFR ( Amer) Est GFR (Non-Af Amer) POC Glucose (mg/dL) 116 H 142 H Random Glucose Hemoglobin A1c Calcium Iron TIBC % Saturation Ferritin 1090.0 Total Bilirubin AST ALT Alkaline Phosphatase Troponin I NT-Pro-B Natriuret Pep Total Protein Albumin Globulin Albumin/Globulin Ratio Triglycerides Cholesterol LDL Cholesterol Direct HDL Cholesterol Vitamin B12 984 H Folate 6.4 TSH 3rd Generation
[2017-10-20] MEDS: Latanoprost 2.5 ml Opht Soln OU SCH (21:54)
--- NOTE | 2017-10-20 22:07 | CON ---
DATE: CARDIOLOGY CONSULTATION REASON FOR CONSULTATION: Chest pain. HISTORY OF PRESENT ILLNESS: The patient is a 52 years old male who has history of end-stage renal disease, on hemodialysis for the past 10 years. He has been experiencing chest discomfort while in hemodialysis, spreading from the right shoulder to the left shoulder involving the upper sternal area. Patient is unaware of any prior cardiac history and denies any associated diaphoresis or dizziness with his chest discomfort. SOCIAL HISTORY: Patient is nonsmoker, nondrinker. MEDICATIONS: Colace 100 mg once a day, aspirin 81 mg once a day, Flexeril 5 mg q. 8 hours, heparin 5000 units q. 8 hours, Lopressor 50 mg once a day, minoxidil 10 mg twice a day, Pepcid 40 mg once a day, Protonix 40 mg p.o. twice a day, Synthroid 25 mcg once a day. REVIEW OF SYSTEMS: No fever or chills, no vomiting or diarrhea. PHYSICAL EXAMINATION: GENERAL: The patient is a middle-aged male who does not appear to be in any distress. VITAL SIGNS: Blood pressure 127/78, heart rate 73, temperature 98.7, respirations 18. HEENT: Pale conjunctivae. CHEST: Clear. HEART: S1, S2 regular. ABDOMEN: Soft. EXTREMITIES: Trace leg edema. LABORATORY DATA: Today's SMA-7 prior to hemodialysis: Sodium 146, potassium 4.2, chloride 98, CO2 of 35, glucose 118, BUN 34, creatinine 10.1. Serum iron is 36 and total iron binding capacity of , both are below normal. The proBNP is 27,400. Total cholesterol is 126. The rest of lipid profile is within normal limits. TSH level is within normal limits. D-dimer is 312, which is elevated. Hemoglobin and hematocrit 9.9 and 33.5, white count and platelet count are within normal limits. EKG revealed sinus rhythm and right bundle-branch block. Echocardiographic study revealed moderate concentric LVH with normal systolic function, moderate pulmonary hypertension. Troponin was 0.02 three times. ASSESSMENT: 1. Chest pain, myocardial infarction ruled out. 2. Rule out pulmonary infarction. 3. End-stage renal disease, on hemodialysis. 4. Hypothyroidism. 5. Hypertension. RECOMMENDATIONS: Continue current aspirin 81 mg once a day, heparin 5000 units subcutaneous twice a day, Lopressor 50 mg once a day, minoxidil 10 mg twice a day, obtain CT angio of the chest to rule out pulmonary embolism and schedule patient for venous Doppler of the lower extremities. Ace Escobedo MD
[2017-10-21] MEDS: BRIMONIDINE 0.2% OU SCH ×2 (05:10→14:10)
[2017-10-21 06:01] VITALS: O2SAT 93
[2017-10-21 06:21] LABS: BASO # 0.03 K/mm3 (0.0-2.0); BASO % 0.5 % (0.0-3.0); EOS # 0.1 (0.0-0.7); EOS % 2.4 % (1.5-5.0); GRAN # 2.47 (1.4-6.5); HEMOGLOBIN 10.2 g/dL (14.0-18.0); LYMPH # 2.3 (1.2-3.4); LYMPH % 41.9 % (22.0-35.0); MEAN CELL VOLUME 85.4 fl (80.0-105.0); MEAN CORPUSCULAR HEMOGLOBIN 25.7 pg (25.0-35.0); MEAN CORPUSCULAR HGB CONC 30.1 g/dl (31.0-37.0); MEAN PLATELET VOLUME 8.8 fl (7.0-11.0); MONO # 0.6 (0.1-0.6); MONO % 10.2 % (1.0-6.0); PLATELET COUNT 163 10^3/uL (120.0-450.0); RBC 3.97 10^6/uL (3.5-6.1); RED CELL DISTRIBUTION WIDTH 17.4 % (11.5-14.5); WHITE BLOOD COUNT 5.5 10^3/ul (4.5-11.0)
[2017-10-21 07:07] LABS: ALB/GLOB RATIO 1.1 (1.1-1.8); CALCIUM 8.8 mg/dL (8.4-10.5)
[2017-10-21] MEDS: Insulin Reg-LOW-Coverage SC SCH ×3 (08:03→18:21)
[2017-10-21] MEDS: POLYETHYLENE GLYCOL 3350 17 GM/Dose PACKET PO SCH ×2 (09:20→18:18)
[2017-10-21] MEDS: Levothyroxine 25 MCG TAB PO SCH (09:22)
[2017-10-21] MEDS: Pantoprazole 40 mg EC Tab PO SCH ×2 (09:23→18:19)
[2017-10-21 10:45] LABS: EOSINOPHIL 6 % (0.0-3.0); LYMPHOCYTE 34 % (22.0-35.0); MONOCYTE 13 % (1.0-6.0); NEUTROPHIL 47 % (50.0-70.0); NUCLEATED RED BLOOD CELL 4 %
--- NOTE | 2017-10-21 11:31 | RAD ---
PROCEDURE: Cervical Spine Radiographs. HISTORY: Pain. COMPARISON: None. FINDINGS: BONES: Alignment maintained. No fracture. Dens Intact. DISC SPACES: Disc degeneration at C3-4, C4-5 and C5-6 SOFT TISSUES: Normal. No prevertebral soft tissue swelling. OTHER FINDINGS: None. IMPRESSION: Disc degeneration at C3-4, C4-5 and C5-6
--- NOTE | 2017-10-21 12:34 | PN ---
DATE: SUBJECTIVE: Patient is experiencing right shoulder pain radiating to the upper sternal area. No retrosternal chest pain. Patient is also experiencing neck pain. PHYSICAL EXAMINATION: VITAL SIGNS: Blood pressure 119/68, heart rate 64, temperature 98.9, respiration 20. HEENT: Pale conjunctivae. CHEST: Clear. HEART: Sounds regular. EXTREMITIES: No edema. LABORATORY DATA: His hemoglobin and hematocrit 10.2 and 33.9. White count and platelet count are within normal limits. Today's BUN and creatinine 24 and 7.7. Glucose 146. Cervical spine, AP and lateral, revealed disk degeneration at C3-C4, C4-C5, C5-C6. Venous Doppler of lower extremity done, report is pending. Ventilation/Perfusion scan negative for PE. Echocardiographic study, moderate concentric LVH with normal ejection fraction and moderate pulmonary hypertension. ASSESSMENT: 1. Atypical chest pain, myocardial infarction is ruled out. 2. Rule out cervical radiculopathy. 3. Anemia. 4. Moderate pulmonary hypertension. 5. End-stage renal disease, on hemodialysis. 6. Systemic hypertension. RECOMMENDATIONS: Continue hydralazine, aspirin, subcutaneous heparin, Lopressor, minoxidil and Synthroid. Obtain CT scan of the cervical spine. Ace Escobedo MD
--- NOTE | 2017-10-21 14:23 | CT ---
PROCEDURE: CT NECK WITHOUT CONTRAST HISTORY: neck pain and burning sensation COMPARISON: None. TECHNIQUE: CT of the neck without intravenous contrast. Coronal and sagittal reformats generated. Radiation dose: DLP 497 mGy-cm This CT exam was performed using one or more of the following dose reduction techniques: Automated exposure control, adjustment of the mA and/or kV according to patient size, and/or use of iterative reconstruction technique. FINDINGS: NASOPHARYNX: Unremarkable. SUPRAHYOID NECK: Unremarkable oropharynx, oral cavity, parapharyngeal space and retropharyngeal space. INFRAHYOID NECK: Unremarkable larynx, hypopharynx, and supraglottic space. Vocal cords intact. MASS: None. GLANDS: Parotid and submandibular glands unremarkable. Normal size thyroid gland, without nodule. LYMPH NODES: There is a moderate amount of cervical adenopathy bilaterally right greater than left. CERVICAL SPINE: There is disc degeneration at C3-4, C4-5 and C5-6 OTHER FINDINGS: None. IMPRESSION: Moderate bilateral cervical adenopathy.
--- NOTE | 2017-10-21 14:51 | CP.PCM.DIS ---
<Deepak Varela - Last Filed: 10/22/17 14:24> Provider - Provider Date of Admission: 10/21/17 11:54 Attending physician: Robles Rueda MD Primary care physician: Rell Thornton MD Consults: Cardiology: Dr. Escobedo Nephrology: Dr. Rowe Time Spent in preparation of Discharge (in minutes): 45 Diagnosis - Discharge Diagnosis (1) Hypertension Status: Chronic Priority: Medium (2) Diabetes mellitus Status: Chronic Priority: Low (3) Hypothyroidism Status: Chronic Priority: Low (4) ESRD (end stage renal disease) Status: Chronic Priority: High Hospital Course - Lab Results Lab Results: Most Recent Lab Values WBC 5.5 10^3/ul (4.5-11.0) 10/21/17 05:30 RBC 3.97 10^6/uL (3.5-6.1) 10/21/17 05:30 Hgb 10.2 g/dL (14.0-18.0) L 10/21/17 05:30 Hct 33.9 % (42.0-52.0) L 10/21/17 05:30 MCV 85.4 fl (80.0-105.0) 10/21/17 05:30 MCH 25.7 pg (25.0-35.0) 10/21/17 05:30 MCHC 30.1 g/dl (31.0-37.0) L 10/21/17 05:30 RDW 17.4 % (11.5-14.5) H 10/21/17 05:30 Plt Count 163 10^3/uL (120.0-450.0) 10/21/17 05:30 MPV 8.8 fl (7.0-11.0) 10/21/17 05:30 Gran % 45.0 % (50.0-68.0) L 10/21/17 05:30 Lymph % (Auto) 41.9 % (22.0-35.0) H 10/21/17 05:30 [place] % (Auto) 10.2 % (1.0-6.0) H 10/21/17 05:30 Eos % (Auto) 2.4 % (1.5-5.0) 10/21/17 05:30 Baso % (Auto) 0.5 % (0.0-3.0) 10/21/17 05:30 Gran # 2.47 (1.4-6.5) 10/21/17 05:30 Lymph # (Auto) 2.3 (1.2-3.4) 10/21/17 05:30 [place] # (Auto) 0.6 (0.1-0.6) 10/21/17 05:30 Eos # (Auto) 0.1 (0.0-0.7) 10/21/17 05:30 Baso # (Auto) 0.03 K/mm3 (0.0-2.0) 10/21/17 05:30 Neutrophils % (Manual) 47 % (50.0-70.0) L 10/21/17 05:30 Band Neutrophils % Turbo Generator Oiler 10/21/17 05:30 Lymphocytes % (Manual) 34 % (22.0-35.0) 10/21/17 05:30 Monocytes % (Manual) 13 % (1.0-6.0) H 10/21/17 05:30 Eosinophils % (Manual) 6 % (0.0-3.0) H 10/21/17 05:30 Nucleated RBC % 4 % 10/21/17 05:30 PT 14.3 SECONDS (9.4-12.5) H 10/19/17 11:25 INR 1.24 (0.93-1.08) H 10/19/17 11:25 APTT 34.8 Seconds (25.1-36.5) 10/20/17 05:15 D-Dimer, Quantitative 312 ng/mL (0-243) H 10/19/17 11:25 Sodium 142 mmol/L (132-148) 10/21/17 05:30 Potassium 4.0 mmol/L (3.6-5.0) 10/21/17 05:30 Chloride 97 mmol/L (98-107) L 10/21/17 05:30 Carbon Dioxide 31 mmol/L (21-33) 10/21/17 05:30 Anion Gap 17 (10-20) 10/21/17 05:30 BUN 24 mg/dL (7-21) H 10/21/17 05:30 Creatinine 7.7 mg/dl (0.8-1.5) H* D 10/21/17 05:30 Est GFR ( Amer) 9 10/21/17 05:30 Est GFR (Non-Af Amer) 8 10/21/17 05:30 POC Glucose (mg/dL) 122 mg/dL (65-110) H 10/21/17 11:11 Random Glucose 146 mg/dL (70-110) H 10/21/17 05:30 Hemoglobin A1c 5.3 % (4.2-6.5) 10/19/17 19:04 Calcium 8.8 mg/dL (8.4-10.5) 10/21/17 05:30 Phosphorus 3.1 mg/dL (2.5-4.5) 10/19/17 19:04 Magnesium 2.1 mg/dL (1.7-2.2) 10/19/17 19:04 Iron 36 ug/dL (45-180) L 10/20/17 06:30 TIBC 223 ug/dL (261-462) L 10/20/17 06:30 % Saturation 16 % (20-55) L 10/20/17 06:30 Ferritin 1090.0 ng/mL 10/20/17 06:30 Total Bilirubin 0.8 mg/dL (0.2-1.3) 10/21/17 05:30 AST 41 U/L (17-59) 10/21/17 05:30 ALT 20 U/L (7-56) 10/21/17 05:30 Alkaline Phosphatase 102 U/L (38-126) 10/21/17 05:30 Lactate Dehydrogenase 516 U/L (333-699) 10/19/17 11:25 Total Creatine Kinase 251 U/L (35-230) H 10/19/17 11:25 CK-MB (CK-2) 1.3 ng/mL (0.0-3.6) 10/19/17 11:25 CK-MB (CK-2) % Cancelled 10/19/17 11:25 Troponin I 0.02 ng/mL 10/19/17 23:20 NT-Pro-B Natriuret Pep 20344 pg/mL (0-450) H 10/19/17 19:04 Total Protein 7.7 g/dL (5.8-8.3) 10/21/17 05:30 Albumin 4.0 g/dL (3.0-4.8) 10/21/17 05:30 Globulin 3.7 gm/dL 10/21/17 05:30 Albumin/Globulin Ratio 1.1 (1.1-1.8) 10/21/17 05:30 Triglycerides 64 mg/dL (35-160) 10/20/17 05:15 Cholesterol 126 mg/dL (130-200) L 10/20/17 05:15 LDL Cholesterol Direct 51 mg/dL (0-129) 10/20/17 05:15 HDL Cholesterol 40 mg/dL (29-60) 10/20/17 05:15 Vitamin B12 984 pg/mL (239-931) H 10/20/17 06:30 Folate 6.4 ng/mL 10/20/17 06:30 TSH 3rd Generation 3.48 mIU/mL (0.46-4.68) 10/19/17 19:04 - Hospital Course Hospital Course: Patient is a 52 year old male with a past medical history significant for hypertension, diabetes mellitus, hypothyroidism, and end stage renal disease with dialysis MWF. Patient stated on Wednesday when he was visiting his mother at [facility], he noticed he was experiencing neck pain which radiated to his right arm. Patient states he is unaware if the pain radiates from the arm to his neck or from his neck to his arm. Due to this atypical description of chest pain, a cardiac workup was performed which was negative according to series troponin and series EKGs. Echocardiogram revealed a moderately concentric hypertrophied left ventricular with normal left ventricular function and ejection fraction, normal left ventricular segmental wall motion. There is moderate tricuspid regurgitation as well as moderate pulmonary hypertension. Despite the negative cardiac workup, patient still complained of his neck pain. Further imaging was ordered which included cervical spine x-ray and soft tissue CT which both revealed disc generation at C3-4, C4-5, and C5-6. Considering patient's initial presentation a pulmonary embolism work up was also done however V/Q, and lower extremity duplex ultrasounds revealed no signs of thromboembolisms. Patient was prescribed a muscle relaxer and tramadol for his cervical pain. Patient endorsed that he normally makes one bowel movement per week. He was discharged with colace and miralax. As far as home medication changes, minoxidil was changed from 5 mg BID to 2.5 mg BID. Patient was advised to follow up with his PMD within 3-5 days regarding this admission for further evaluation and treatment of cervical findings. Patient was in agreement with plan and then discharged. Case discussed and reviewed with Dr. Agustina Varela PGY1 Discharge Exam - Head Exam Head Exam: ATRAUMATIC, NORMAL INSPECTION, NORMOCEPHALIC - Eye Exam Eye Exam: EOMI, Normal appearance - ENT Exam ENT Exam: Mucous Membranes Moist - Neck Exam Neck exam: Full Rom, Normal Inspection, Tenderness - Respiratory Exam Respiratory Exam: Clear to PA & Lateral, UNREMARKABLE - Cardiovascular Exam Cardiovascular Exam: REGULAR RHYTHM, +S1, +S2 - GI/Abdominal Exam GI & Abdominal Exam: Normal Bowel Sounds, Unremarkable - Extremities Exam Extremities exam: normal inspection - Neurological Exam Neurological exam: Alert, CN II-XII Intact, Oriented x3 - Psychiatric Exam Psychiatric exam: Normal Affect, Normal Mood - Skin Skin Exam: Intact, Normal Color, Warm Discharge Plan - Discharge Medications Prescriptions: Aspirin [Ecotrin] 81 mg PO 0800 #14 tabec Cyclobenzaprine [Cyclobenzaprine HCl] 5 mg PO HS PRN #7 tab PRN Reason: Muscle Spasm Docusate [Colace] 100 mg PO TID #42 cap Famotidine [Pepcid] 40 mg PO HS #14 tab Minoxidil 2.5 mg PO BID #30 tab Polyethylene Glycol 3350 [Miralax] 17 gm PO BID #28 packet Sodium Chloride Nasal [place] [[place] Nasal [place]] 1 bottle NS TID #1 bottle - Follow Up Plan Condition: FAIR Disposition: HOME/ ROUTINE Instructions: Chest Pain, End Stage Kidney Disease Additional Instructions: 1. Please follow up with your PMD, Dr. Thornton, within 3-5 days regarding this admission. 2. Please fill and take medications as prescribed only when in pain, as needed. 3. Do not hesitate to return to the ED if symptoms return or worsen. New medication changes Minoxidil has decreased to 2.5mg twice daily. Please do not take home minoxidil. Referrals: Rell Thornton MD [Primary Care Provider] - <Robles Rueda - Last Filed: 10/22/17 17:18> Provider - Provider Date of Admission: 10/19/17 12:37 Attending physician: Robles Rueda MD Primary care physician: Rell Thornton MD Hospital Course - Lab Results Lab Results: Most Recent Lab Values WBC 5.5 10^3/ul (4.5-11.0) 10/21/17 05:30 RBC 3.97 10^6/uL (3.5-6.1) 10/21/17 05:30 Hgb 10.2 g/dL (14.0-18.0) L 10/21/17 05:30 Hct 33.9 % (42.0-52.0) L 10/21/17 05:30 MCV 85.4 fl (80.0-105.0) 10/21/17 05:30 MCH 25.7 pg (25.0-35.0) 10/21/17 05:30 MCHC 30.1 g/dl (31.0-37.0) L 10/21/17 05:30 RDW 17.4 % (11.5-14.5) H 10/21/17 05:30 Plt Count 163 10^3/uL (120.0-450.0) 10/21/17 05:30 MPV 8.8 fl (7.0-11.0) 10/21/17 05:30 Gran % 45.0 % (50.0-68.0) L 10/21/17 05:30 Lymph % (Auto) 41.9 % (22.0-35.0) H 10/21/17 05:30 [place] % (Auto) 10.2 % (1.0-6.0) H 10/21/17 05:30 Eos % (Auto) 2.4 % (1.5-5.0) 10/21/17 05:30 Baso % (Auto) 0.5 % (0.0-3.0) 10/21/17 05:30 Gran # 2.47 (1.4-6.5) 10/21/17 05:30 Lymph # (Auto) 2.3 (1.2-3.4) 10/21/17 05:30 [place] # (Auto) 0.6 (0.1-0.6) 10/21/17 05:30 Eos # (Auto) 0.1 (0.0-0.7) 10/21/17 05:30 Baso # (Auto) 0.03 K/mm3 (0.0-2.0) 10/21/17 05:30 Neutrophils % (Manual) 47 % (50.0-70.0) L 10/21/17 05:30 Band Neutrophils % Turbo Generator Oiler 10/21/17 05:30 Lymphocytes % (Manual) 34 % (22.0-35.0) 10/21/17 05:30 Monocytes % (Manual) 13 % (1.0-6.0) H 10/21/17 05:30 Eosinophils % (Manual) 6 % (0.0-3.0) H 10/21/17 05:30 Nucleated RBC % 4 % 10/21/17 05:30 PT 14.3 SECONDS (9.4-12.5) H 10/19/17 11:25 INR 1.24 (0.93-1.08) H 10/19/17 11:25 APTT 34.8 Seconds (25.1-36.5) 10/20/17 05:15 D-Dimer, Quantitative 312 ng/mL (0-243) H 10/19/17 11:25 Sodium 142 mmol/L (132-148) 10/21/17 05:30 Potassium 4.0 mmol/L (3.6-5.0) 10/21/17 05:30 Chloride 97 mmol/L (98-107) L 10/21/17 05:30 Carbon Dioxide 31 mmol/L (21-33) 10/21/17 05:30 Anion Gap 17 (10-20) 10/21/17 05:30 BUN 24 mg/dL (7-21) H 10/21/17 05:30 Creatinine 7.7 mg/dl (0.8-1.5) H* D 10/21/17 05:30 Est GFR ( Amer) 9 10/21/17 05:30 Est GFR (Non-Af Amer) 8 10/21/17 05:30 POC Glucose (mg/dL) 128 mg/dL (65-110) H 10/21/17 16:36 Random Glucose 146 mg/dL (70-110) H 10/21/17 05:30 Hemoglobin A1c 5.3 % (4.2-6.5) 10/19/17 19:04 Calcium 8.8 mg/dL (8.4-10.5) 10/21/17 05:30 Phosphorus 3.1 mg/dL (2.5-4.5) 10/19/17 19:04 Magnesium 2.1 mg/dL (1.7-2.2) 10/19/17 19:04 Iron 36 ug/dL (45-180) L 10/20/17 06:30 TIBC 223 ug/dL (261-462) L 10/20/17 06:30 % Saturation 16 % (20-55) L 10/20/17 06:30 Ferritin 1090.0 ng/mL 10/20/17 06:30 Total Bilirubin 0.8 mg/dL (0.2-1.3) 10/21/17 05:30 AST 41 U/L (17-59) 10/21/17 05:30 ALT 20 U/L (7-56) 10/21/17 05:30 Alkaline Phosphatase 102 U/L (38-126) 10/21/17 05:30 Lactate Dehydrogenase 516 U/L (333-699) 10/19/17 11:25 Total Creatine Kinase 251 U/L (35-230) H 10/19/17 11:25 CK-MB (CK-2) 1.3 ng/mL (0.0-3.6) 10/19/17 11:25 CK-MB (CK-2) % Cancelled 10/19/17 11:25 Troponin I 0.02 ng/mL 10/19/17 23:20 NT-Pro-B Natriuret Pep 61801 pg/mL (0-450) H 10/19/17 19:04 Total Protein 7.7 g/dL (5.8-8.3) 10/21/17 05:30 Albumin 4.0 g/dL (3.0-4.8) 10/21/17 05:30 Globulin 3.7 gm/dL 10/21/17 05:30 Albumin/Globulin Ratio 1.1 (1.1-1.8) 10/21/17 05:30 Triglycerides 64 mg/dL (35-160) 10/20/17 05:15 Cholesterol 126 mg/dL (130-200) L 10/20/17 05:15 LDL Cholesterol Direct 51 mg/dL (0-129) 10/20/17 05:15 HDL Cholesterol 40 mg/dL (29-60) 10/20/17 05:15 Vitamin B12 984 pg/mL (239-931) H 10/20/17 06:30 Folate 6.4 ng/mL 10/20/17 06:30 TSH 3rd Generation 3.48 mIU/mL (0.46-4.68) 10/19/17 19:04 Attending/Attestation - Attestation I have personally seen and examined this patient.: Yes I have fully participated in the care of the patient.: Yes I have reviewed all pertinent clinical information, including history, physical exam and plan: Yes Notes (Text): 52 year old male with a past medical history of hypertension, hypothyroidism, and ESRD (MWF) dialysis who came for evaluation of neck pain. ACS ruled out. Echo revealed LVEF , Moderate TR and moderate pulmonary hypertension. Patient is in NSR. Neck pain is most likely related to musculoskeletal etiology vs DJD. Cervical spine Xray reveals DJD. Neck CT revealed bilateral cervical adenopathy. UE duplex is negative. Abdominal pain is most likely due to constipation which has resolved now. Will continue miralax and colace. A1c is 5.3. Discussed with bathhouse attendant. Minoxidil dose was decreased. Continue synthroid. Upon discharge patient will follow up with Dr Rell Oates. Dr Robles Rueda
--- NOTE | 2017-10-21 17:08 | CP.PCM.PN ---
Objective - Vital Signs/Intake and Output Vital Signs (last 24 hours): Temp Pulse Resp BP Pulse Ox 98.9 F 72 20 119/68 93 L 10/21/17 11:38 10/21/17 14:00 10/21/17 11:38 10/21/17 11:38 10/21/17 06:00 - Medications Medications: Current Medications Acetaminophen (Tylenol 325mg Tab) 650 mg PO Q4 PRN PRN Reason: Pain, moderate (4-7) Aspirin (Ecotrin) 81 mg PO 0800 [facility] Last Admin: 10/21/17 08:03 Dose: 81 mg Cinacalcet (Sensipar) 30 mg PO DAILY [facility] Last Admin: 10/21/17 09:21 Dose: 30 mg Cyclobenzaprine HCl (Flexeril) 5 mg PO HS [facility] Last Admin: 10/21/17 00:19 Dose: Not Given Cyclobenzaprine HCl (Flexeril) 5 mg PO Q12 PRN PRN Reason: Other Docusate Sodium (Colace) 100 mg PO TID [facility] Last Admin: 10/21/17 14:09 Dose: 100 mg Famotidine (Pepcid) 40 mg PO HS [facility] Last Admin: 10/20/17 21:52 Dose: 40 mg Heparin Sodium (Porcine) (Heparin) 5,000 units SC Q8 [facility] PRN Reason: Protocol Last Admin: 10/21/17 14:11 Dose: 5,000 units Hydralazine HCl (Apresoline) 10 mg IVP Q6 PRN PRN Reason: Systolic Blood Pressure Insulin Human Regular (Humulin R Low) 0 units SC [facility] PRN Reason: Protocol Last Admin: 10/21/17 12:49 Dose: Not Given Latanoprost (Xalatan Opht) 0 ml OU [facility] Last Admin: 10/20/17 21:54 Dose: 2.5 ml Levothyroxine Sodium (Synthroid) 25 mcg PO DAILY [facility] Last Admin: 10/21/17 09:22 Dose: 25 mcg Metoprolol Tartrate (Lopressor) 50 mg PO BID [facility] Last Admin: 10/21/17 09:23 Dose: 50 mg Minoxidil (Minoxidil) 2.5 mg PO BID [facility] Non-Formulary Medication (Brimonidine 0.2% [Alphagan 0.2% Opht]) 1 drp OU Q8 [facility] Last Admin: 10/21/17 14:10 Dose: Not Given Pantoprazole Sodium (Protonix Ec Tab) 40 mg PO BID [facility] Last Admin: 10/21/17 09:23 Dose: 40 mg Polyethylene Glycol (Miralax) 17 gm PO BID [facility] Last Admin: 10/21/17 09:20 Dose: 17 gm Sodium Chloride ([place] Nasal [place]) 0 ml NS TID [facility] Timolol Maleate (Timoptic 0.5% Oph Soln) 1 drop OU BID [facility] Last Admin: 10/21/17 09:24 Dose: 1 drop Tramadol HCl (Ultram) 50 mg PO TID PRN PRN Reason: Pain, severe (8-10) Last Admin: 10/20/17 21:52 Dose: 50 mg - Labs Labs: PT 14.3 SECONDS (9.4-12.5) H 10/19/17 11:25 INR 1.24 (0.93-1.08) H 10/19/17 11:25 APTT 34.8 Seconds (25.1-36.5) 10/20/17 05:15
[2017-10-21 17:28] VITALS: BP 134/79; PULSE 60; RESP 18; TEMP 98.7
--- NOTE | 2017-10-21 19:31 | US ---
PROCEDURE: Right upper extremity venous US CLINICAL HISTORY: Arm pain and swelling Evaluate for deep venous thrombosis. PHYSICIAN(S): Olivier Mcpherson M.D FINDINGS: The visualized rightinternal jugular vein is sonographically normal and compressible. No evidence of obstruction or thrombus is seen. The visualized segments of the right subclavian vein are patent with normal waveforms. No sonographic evidence of obstruction or thrombosis is seen. The visualized deep venous system of the proximal right upper extremity is sonographically normal and compressible. IMPRESSION: 1. No sonographic evidence for deep venous thrombosis in the visualized segments of the right upper extremity.
--- NOTE | 2017-10-21 19:32 | US ---
HISTORY: Leg pain and swelling. Evaluate for DVT PHYSICIAN(S): Olivier Mcpherson MD. TECHNIQUE: Duplex sonography and color-flow Doppler with graded compression were used to evaluate the deep venous systems of both lower extremities. The exam is somewhat limited by edema. FINDINGS: The visualized deep venous systems of both lower extremities are sonographically normal and compressible. Normal wave forms and augmentation are seen. There is no sonographic evidence for deep venous thrombosis in the visualized segments of both lower extremities. IMPRESSION: No sonographic evidence for deep venous thrombosis in the visualized segments of both lower extremities.
== END 2017-10-21 19:59 | disposition home or self-care (01) ==
LOC: ED 09:41 → ERH 12:37 → 2RNO 14:32 → INTOOBSV 10-21 11:54 → OBSVTOIN 10-21 11:54
PROVIDERS: ADMIT Hospitalist; ATTEND Hospitalist
DX: R07.89 Other chest pain (principal); E11.22 Type 2 diabetes mellitus with diabetic chronic kidney disease; I12.0 Hypertensive chronic kidney disease with stage 5 chronic kidney disease or end stage renal disease; N18.6 End stage renal disease; Z99.2 Dependence on renal dialysis; E03.9 Hypothyroidism, unspecified; I27.20 Pulmonary hypertension, unspecified; M54.2 Cervicalgia; K59.00 Constipation, unspecified; D64.9 Anemia, unspecified; I36.1 Nonrheumatic tricuspid (valve) insufficiency
CPT/HCPCS: 36415; 70490; 71045; 72040; 74018; 78582; 80053; 80061; 82550; 82553; 82607; 82728; 82746; 82948; 83036; 83540; 83550; 83615; 83735; 83880; 84100; 84443; 84484; 85025; 85378; 85610; 85730; 93005; 93306; 93970; 93971; 96374; 99285; G0378; J1644; J2270